=== PATIENT | female | born 1995 | race Caucasian/White ===

== ENCOUNTER 2017-11-18 17:19 | Emergency (ER) | payer SELFPAY ==
[2017-11-18 17:48] VITALS: O2SAT 94
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
[2017-11-18 22:38] VITALS: BP 108/78; TEMP 98.5
== END 2017-11-18 22:25 ==
LOC: ER 17:19
DX: R45.851 Suicidal ideations (principal); F32.9 Major depressive disorder, single episode, unspecified; J45.909 Unspecified asthma, uncomplicated; K21.9 Gastro-esophageal reflux disease without esophagitis

== ENCOUNTER 2017-11-25 19:26 | Emergency (ER) | payer SELFPAY ==
--- NOTE | 2017-11-25 19:51 | ED.PDOC ---
History of Present Illness - General Chief Complaint: Abdominal Pain Stated Complaint: abd pain Time Seen by Provider: 11/25/17 19:46 Source: patient Exam Limitations: no limitations Additional Information: 22 YEAR OLD COMPLAINTS OF LOWER ABDOMINAL PAIN NON RADIATING NO ASSOCIATED FEVER CHILLS NO NAUSEA VOMITING OR DIARRHEA NO FREQUENCY OF URINATION NO DYSURIA HAS HAD C SECTION 3 MONTHS AGO THE INCISION HAS HEALED WELL - History of Present Illness Timing/Duration: 24 hours Severity: moderate Improving Factors: nothing Worsening Factors: nothing Associated Symptoms: denies symptoms Allergies/Adverse Reactions: Allergies Iodine Allergy (Verified 11/18/17 17:50) Home Medications: Ambulatory Orders Sertraline HCl 100 mg PO DAILY 12/20/13 Vit W/ Iron Carbonyl- [Vol-Tab Rx] 1 tab PO DAILY 01/27/14 Cephalexin 500 mg PO QID 03/16/14 Norethindrone (Contraceptive) [Juany] 0.35 mg PO DAILY 03/16/14 Pantoprazole Sodium 40 mg PO DAILY 03/16/14 Review of Systems - Review of Systems Constitutional: States: no symptoms reported EENTM: States: no symptoms reported Respiratory: States: no symptoms reported Cardiology: States: no symptoms reported Gastrointestinal/Abdominal: States: see HPI Genitourinary: States: no symptoms reported Skin: States: no symptoms reported Neurological: States: no symptoms reported Endocrine: States: no symptoms reported Hematologic/Lymphatic: States: no symptoms reported Past Medical History (General) - Patient Medical History Hx Seizures: No Hx Stroke: No Hx Dementia: No Hx Asthma: Yes Hx of COPD: No Hx Cardiac Disorders: No Hx Congestive Heart Failure: No Hx Pacemaker: No Hx Hypertension: No Hx Thyroid Disease: No Hx Diabetes: No Hx Gastroesophageal Reflux: No Hx Renal Disease: No Hx Cancer: No Hx of HIV: No Hx Hepatitis C: No Hx MRSA: No Surgical History: other - Vaccination History Hx Tetanus, Diphtheria Vaccination: Yes Hx Influenza Vaccination: Yes Hx Pneumococcal Vaccination: No - Social History Hx Tobacco Use: Yes Hx Chewing Tobacco Use: No Hx Alcohol Use: No Hx Substance Use: No Hx Substance Use Treatment: No Hx Depression: Yes Hx Physical Abuse: No Hx Emotional Abuse: No Hx Suspected Abuse: No - Female History Patient is a Female of Child Bearing Age (10 -59 yrs old): Yes Hx Last Menstrual Period: 11/01/17 Patient : No Expected Date of Delivery:: 02/10/14 - Triage Comment ED Triage Comment: pt had c/s 3.5months ago Family Medical History - Family History Maternal Family History: Unknown Father Name: Guevara Mcginnis Age (years): 76 Living Status: Still Living Hx Family Hypertension: Yes Hx Cardiac Disease: Yes - [place] Hx Family;Other: isi cholesterol, arthritis, osteoporosis, alzheimers Brother Age (years): 50's Living Status: Still Living Hx Cardiac Disease: Yes Hx Family;Other: open heart surgery Mother Name: Georgiana Age (years): 40s Living Status: Still Living Hx Family Hypertension: Yes Hx Family Diabetes: Yes Hx Family;Other: scoliosis Sister Name: Christine Holley Living Status: Still Living Hx Family Cancer: Yes Physical Exam - Physical Exam General Appearance: Alert, Comfortable Eye Exam: bilateral normal Ears, Nose, Throat: hearing grossly normal, normal ENT inspection, normal pharynx, abnormal TM (R) Neck: non-tender, full range of motion, supple Respiratory: chest non-tender, lungs clear, normal breath sounds, no respiratory distress, no accessory muscle use Cardiovascular/Chest: normal peripheral pulses, regular rate, rhythm, no edema, no gallop, no JVD Gastrointestinal/Abdominal: normal bowel sounds, soft, no organomegaly, no pulsatile mass, tenderness Back Exam: normal inspection, no CVA tenderness Extremity: normal range of motion, non-tender, normal inspection Progress - Results/Orders Results/Orders: Laboratory Tests 11/25/17 11/25/17 11/25/17 19:45 20:07 20:07 WBC 7.4 RBC 4.14 L Hgb 11.7 L Hct 34.6 L MCV 83.7 MCH 28.2 MCHC 33.8 RDW 14.4 Plt Count 292 MPV 7.7 Absolute Neuts (auto) 4.10 Absolute Lymphs (auto) 2.70 Absolute Monos (auto) 0.40 Absolute Eos (auto) 0.10 Absolute Basos (auto) 0.10 Neutrophils % 55.3 Lymphocytes % 36.7 Monocytes % 5.7 Eosinophils % 1.3 Basophils % 1.0 Sodium 140 Potassium 3.5 L Chloride 109 Carbon Dioxide 25 Anion Gap 9.5 L BUN 13 Creatinine 0.64 BUN/Creatinine Ratio 20.3 H Random Glucose 120 H Serum Osmolality 280.7 Calcium 9.1 Serum HCG, Qual Urine Color Yellow Urine Appearance Clear Urine pH 6.0 Ur Specific [place] >= 1.030 Urine Protein Negative Urine Glucose (UA) Negative Urine Ketones Negative Urine Blood Negative Urine Nitrite Negative Urine Bilirubin Negative Urine Urobilinogen 0.2 Ur Leukocyte Esterase Negative Urine RBC 0 Urine WBC 3-5 H Ur Epithelial Cells 1-3 Urine Bacteria Rare Urine Mucus Small 11/25/17 20:11 WBC RBC Hgb Hct MCV MCH MCHC RDW Plt Count MPV Absolute Neuts (auto) Absolute Lymphs (auto) Absolute Monos (auto) Absolute Eos (auto) Absolute Basos (auto) Neutrophils % Lymphocytes % Monocytes % Eosinophils % Basophils % Sodium Potassium Chloride Carbon Dioxide Anion Gap BUN Creatinine BUN/Creatinine Ratio Random Glucose Serum Osmolality Calcium Serum HCG, Qual Negative Urine Color Urine Appearance Urine pH Ur Specific [place] Urine Protein Urine Glucose (UA) Urine Ketones Urine Blood Urine Nitrite Urine Bilirubin Urine Urobilinogen Ur Leukocyte Esterase Urine RBC Urine WBC Ur Epithelial Cells Urine Bacteria Urine Mucus Departure - Departure Clinical Impression: Abdominal pain, Constipation Time of Disposition: 20:48 Disposition: Discharge to Home or Self Care Condition: Good Departure Forms: ED Discharge - Pt. Copy, Patient Portal Self Enrollment Instructions: DI for Abdominal Pain-Adult Diet: resume usual diet Home Medications: Ambulatory Orders Sertraline HCl 100 mg PO DAILY 12/20/13 Vit W/ Iron Carbonyl- [Vol-Tab Rx] 1 tab PO DAILY 01/27/14 Cephalexin 500 mg PO QID 03/16/14 Norethindrone (Contraceptive) [Juany] 0.35 mg PO DAILY 03/16/14 Pantoprazole Sodium 40 mg PO DAILY 03/16/14
--- NOTE | 2017-11-25 20:34 | RAD ---
EXAM DESCRIPTION: KUB CLINICAL HISTORY: lower abd pain COMPARISON: None. FINDINGS: Single supine view of the abdomen was submitted. There is no evidence of bowel obstruction. There is no abnormal calcification within the abdomen. There is no acute osseous process visualized. Moderate stool is in the colon. IMPRESSION: Moderate stool. Electronically signed by: Dano Peñaloza 11/25/2017 8:33 PM CDT
[2017-11-25] MEDS ORDERED: SODIUM PHOS/BIPHOS ENEMA ADULT 133 ML BTTL PR ONE (20:50)
[2017-11-25 21:18] VITALS: BP 100/65; TEMP 98.2; O2SAT 100
== END 2017-11-25 21:17 | disposition home or self-care (01) ==
LOC: ER 19:26
DX: K59.00 Constipation, unspecified (principal); R10.30 Lower abdominal pain, unspecified; J45.909 Unspecified asthma, uncomplicated; Z87.891 Personal history of nicotine dependence; Z91.041 Radiographic dye allergy status

== ENCOUNTER 2017-12-05 17:56 | Emergency (ER) | payer SELFPAY ==
[2017-12-05] MEDS ORDERED: LIDOCAINE HCL 2% (MOUTH-THROAT) 15 ML UD ONE (18:09)
[2017-12-05] MEDS ORDERED: ALUM & MAG HYDROX-SIMETHICONE 30 ML UD ONE (18:10)
[2017-12-05 18:13] VITALS: TEMP 98.3
[2017-12-05] MEDS: ALUM & MAG HYDROX-SIMETHICONE 30 ML, LIDOCAINE VISCOUS 2% 15 ML PO ONE ×2 (18:17)
--- NOTE | 2017-12-05 18:57 | RAD ---
EXAM DESCRIPTION: Chest,1 View CLINICAL HISTORY: 22 years Female acute chest pain COMPARISON: None. FINDINGS: The cardiomediastinal silhouette appears unremarkable. No consolidating infiltrates or pleural effusions. No pneumothorax. IMPRESSION: No acute abnormality is identified. Electronically signed by: Edwar Galvin MD 12/05/2017 6:55 PM CDT
[2017-12-05 19:45] VITALS: O2SAT 100
[2017-12-05] MEDS: CIPROFLOXACIN 500 MG TAB PO ONE (19:55)
[2017-12-05] MEDS: cefTRIAXone SODIUM 1 GM in SODIUM CHL 0.9% 50ML MIN-BAG+ 50 ML IVPB ONE (19:58)
[2017-12-05] MEDS: cefTRIAXone SODIUM 1 GM VIAL IM ONE (20:02)
--- NOTE | 2017-12-05 21:56 | ED.PDOC ---
History of Present Illness - General Chief Complaint: Chest Pain/NM Stated Complaint: chest pain Time Seen by Provider: 12/05/17 17:59 Source: patient Exam Limitations: no limitations - History of Present Illness Initial Comments: the patient is a 22-year-old female presenting to the emergency room secondary to chest pain that started acutely just as she was finishing her pot pie for supper. The patient has no cardiac history. No history of any DVTs. Pain is deep and substernal and burning. No pain with taking a deep breath. No shortness of breath. No palpitations. The pain did go away very soon after GI cocktail. She did present here within 15 minutes of the chest pain starting. She rates it as a 9 out of 10 initially. no nausea or vomiting. No history of reflux issues. No leg pain or swelling. Timing/Duration: 1/2 hour Severity: moderate Improving Factors: nothing Worsening Factors: nothing Associated Symptoms: chest pain Allergies/Adverse Reactions: Allergies Iodine Allergy (Verified 11/18/17 17:50) Home Medications: Ambulatory Orders Sertraline HCl 100 mg PO DAILY 12/20/13 Vit W/ Iron Carbonyl- [Vol-Tab Rx] 1 tab PO DAILY 01/27/14 Cephalexin 500 mg PO QID 03/16/14 Norethindrone (Contraceptive) [Juany] 0.35 mg PO DAILY 03/16/14 Pantoprazole Sodium 40 mg PO DAILY 03/16/14 Ciprofloxacin [Cipro] 500 mg PO BID #14 tab 12/05/17 Famotidine 20 mg PO BID #30 tab 12/05/17 Review of Systems - Review of Systems Constitutional: States: no symptoms reported EENTM: States: no symptoms reported Respiratory: States: no symptoms reported Cardiology: States: chest pain Gastrointestinal/Abdominal: States: no symptoms reported Genitourinary: States: no symptoms reported Musculoskeletal: States: no symptoms reported Skin: States: no symptoms reported Neurological: States: no symptoms reported Endocrine: States: no symptoms reported All other Systems: No Change from Baseline Past Medical History (General) - Patient Medical History Hx Seizures: No Hx Stroke: No Hx Dementia: No Hx Asthma: Yes Hx of COPD: No Hx Cardiac Disorders: No Hx Congestive Heart Failure: No Hx Pacemaker: No Hx Hypertension: No Hx Thyroid Disease: No Hx Diabetes: No Hx Gastroesophageal Reflux: No Hx Renal Disease: No Hx Cancer: No Hx of HIV: No Hx Hepatitis C: No Hx MRSA: No Surgical History: other - Vaccination History Hx Tetanus, Diphtheria Vaccination: Yes Hx Influenza Vaccination: Yes Hx Pneumococcal Vaccination: No - Social History Hx Tobacco Use: Yes Hx Chewing Tobacco Use: No Hx Alcohol Use: No Hx Substance Use: No Hx Substance Use Treatment: No Hx Depression: Yes Hx Physical Abuse: No Hx Emotional Abuse: No Hx Suspected Abuse: No - Female History Hx Last Menstrual Period: 11/01/17 Patient : No Expected Date of Delivery:: 02/10/14 Family Medical History - Family History Maternal Family History: Unknown Father Name: Guevara Mcginnis Age (years): 76 Living Status: Still Living Hx Family Hypertension: Yes Hx Cardiac Disease: Yes - [place] Hx Family;Other: isi cholesterol, arthritis, osteoporosis, alzheimers Brother Age (years): 50's Living Status: Still Living Hx Cardiac Disease: Yes Hx Family;Other: open heart surgery Mother Name: Georgiana Age (years): 40s Living Status: Still Living Hx Family Hypertension: Yes Hx Family Diabetes: Yes Hx Family;Other: scoliosis Sister Name: Christine Holley Living Status: Still Living Hx Family Cancer: Yes Physical Exam - Physical Exam General Appearance: Alert, Anxious, No apparent distress Eye Exam: bilateral normal Ears, Nose, Throat: hearing grossly normal, normal ENT inspection, normal pharynx Neck: full range of motion, supple Respiratory: lungs clear, normal breath sounds, no respiratory distress, no accessory muscle use, other - she does have mild bilateral parasternal chest wall discomfort to palpation but she states that this is different than the pain she is talking about Cardiovascular/Chest: normal peripheral pulses, regular rate, rhythm, no edema Peripheral Pulses: radial,right: 2+, radial,left: 2+, dorsalis pedis,right: 2+, dorsalis pedis,left: 2+ Gastrointestinal/Abdominal: non tender, soft Rectal Exam: deferred Back Exam: normal inspection, no CVA tenderness, no vertebral tenderness Extremity: normal range of motion, non-tender, normal inspection, no pedal edema , normal capillary refill 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 The most likely source of this is esophageal irritation from probably a hard food that she swallowed. Symptoms were relieved with a GI cocktail. The patient has had a couple of sets of cardiac enzymes that are negative and based on clinical exam and lab work she is low probability for DVT or pulmonary embolus or coronary artery disease. The patient is going to be placed on Pepcid twice daily for the next 2 weeks. She can additionally use Maalox as needed. She needs to take small bites and chew them well before swallowing. She needs to avoid hard or sharp foods for the next week or so. ER warnings are given for any significant worsening. EKG chest x-ray and lab work were reassuring. she does have a significant urinary tract infection and will be placed on ciprofloxacin for this at this time. She is to take this medication with food. She needs to follow up with her primary care doctor later this week for a urine culture results. Keep well hydrated. - Results/Orders Results/Orders: chest x-ray fails to show any acute pathology. EKG shows normal sinus rhythm at a rate of 77 bpm. Normal axis. Normal R-wave progression. No acute ST segment changes concerning for ischemia. Normal QT corrected interval. 12/05/17 18:07 Telemetry .CONTINUOUS 12/05/17 18:15 EKG STAT 12/05/17 18:27 URINE CULTURE W/COLONY COUNT Stat Laboratory Results - last 24 hr 12/05/17 12/05/17 12/05/17 18:07 18:08 18:08 WBC 5.9 RBC 4.12 L Hgb 11.6 L Hct 34.4 L MCV 83.6 MCH 28.1 MCHC 33.5 RDW 14.4 Plt Count 326 MPV 7.5 Absolute Neuts (auto) 3.30 Absolute Lymphs (auto) 2.20 Absolute Monos (auto) 0.30 Absolute Eos (auto) 0.10 Absolute Basos (auto) 0.10 Neutrophils % 54.9 Lymphocytes % 37.3 Monocytes % 5.6 Eosinophils % 1.3 Basophils % 0.9 PT 11.7 INR 1.010 PTT (SP) 31.0 D-Dimer, Quantitative 293 H* Sodium 140 Potassium 3.5 L Chloride 108 Carbon Dioxide 25 Anion Gap 10.5 L BUN 10 Creatinine 0.57 L BUN/Creatinine Ratio 17.5 Random Glucose 110 H Serum Osmolality 279.1 Calcium 9.1 Total Bilirubin 0.3 AST 20 ALT 18 Alkaline Phosphatase 76 Creatine Kinase 99 CK-MB (CK-2) 1.1 CK-MB (CK-2) % Not Reportable Troponin I < 0.02 B-Natriuretic Peptide 16.7 Serum Total Protein 7.1 Albumin 3.9 Globulin 3.2 Albumin/Globulin Ratio 1.2 Urine Color Urine Appearance Urine pH Ur Specific [place] Urine Protein Urine Glucose (UA) Urine Ketones Urine Blood Urine Nitrite Urine Bilirubin Urine Urobilinogen Ur Leukocyte Esterase Urine RBC Urine WBC Ur Epithelial Cells Urine Bacteria Urine Mucus Urine HCG, Qual 12/05/17 12/05/17 12/05/17 18:08 18:27 21:33 WBC RBC Hgb Hct MCV MCH MCHC RDW Plt Count MPV Absolute Neuts (auto) Absolute Lymphs (auto) Absolute Monos (auto) Absolute Eos (auto) Absolute Basos (auto) Neutrophils % Lymphocytes % Monocytes % Eosinophils % Basophils % PT INR PTT (SP) D-Dimer, Quantitative Sodium Potassium Chloride Carbon Dioxide Anion Gap BUN Creatinine BUN/Creatinine Ratio Random Glucose Serum Osmolality Calcium Total Bilirubin AST ALT Alkaline Phosphatase Creatine Kinase 97 CK-MB (CK-2) 0.5 CK-MB (CK-2) % Not Reportable Troponin I < 0.02 B-Natriuretic Peptide Serum Total Protein Albumin Globulin Albumin/Globulin Ratio Urine Color Yellow Urine Appearance Sl cloudy Urine pH 6.5 Ur Specific [place] >= 1.030 Urine Protein Negative Urine Glucose (UA) Negative Urine Ketones Negative Urine Blood Negative Urine Nitrite Negative Urine Bilirubin Negative Urine Urobilinogen 0.2 Ur Leukocyte Esterase Trace H Urine RBC 1-3 Urine WBC Tntc H Ur Epithelial Cells 5-10 Urine Bacteria 2+ H Urine Mucus Moderate Urine HCG, Qual Negative Departure - Departure Clinical Impression: Atypical chest pain, Cystitis Disposition: Discharge to Home or Self Care Condition: Fair Departure Forms: ED Discharge - Pt. Copy, Patient Portal Self Enrollment Diet: bland diet Activity: increase activity as tolerated Prescriptions: Ciprofloxacin [Cipro] 500 mg PO BID #14 tab Famotidine 20 mg PO BID #30 tab Home Medications: Ambulatory Orders Sertraline HCl 100 mg PO DAILY 12/20/13 Vit W/ Iron Carbonyl- [Vol-Tab Rx] 1 tab PO DAILY 01/27/14 Cephalexin 500 mg PO QID 03/16/14 Norethindrone (Contraceptive) [Juany] 0.35 mg PO DAILY 03/16/14 Pantoprazole Sodium 40 mg PO DAILY 03/16/14 Ciprofloxacin [Cipro] 500 mg PO BID #14 tab 12/05/17 Famotidine 20 mg PO BID #30 tab 12/05/17 Additional Instructions: the patient is a 27-year-old male presenting to the emergency room secondary to a piece of glass getting stuck in the heel of his left foot. Glass was removed under direct visualization. The wound was irrigated copiously with saline and Betadine. The wound was covered with antibiotic ointment and a Band-Aid. He needs to wash the wound 2-3 times a day with an antibacterial soap such as Dial and cover it with a Band-Aid and antibacterial ointment. He is to use crutches and be nonweightbearing for the next week. due to the nature of the wound, no eduard, sutures or Steri-Strips are being used. he needs to not put on a shoe for at least 4 days. He is going to be placed on 14 days of Bactrim and ciprofloxacin as this wound has a high likelihood of developing an infection. He received the first doses of those here along with a dose of Rocephin and a tetanus shot. ER warnings were given for any evidence of infection. I would like him to have the wound looked at by his primary care doctor in 7 or 8 days before resuming his regular duties.
[2017-12-05 22:24] VITALS: BP 138/66
== END 2017-12-05 22:24 | disposition home or self-care (01) ==
LOC: ER 17:56
DX: R07.89 Other chest pain (principal); N30.00 Acute cystitis without hematuria; J45.909 Unspecified asthma, uncomplicated; Z87.891 Personal history of nicotine dependence; Z82.49 Family history of ischemic heart disease and other diseases of the circulatory system
CPT/HCPCS: 71045; 80053; 81001; 81025; 82550; 82553; 83880; 84484; 85025; 85379; 85610; 85730; 87086; 87088; 87186; 93005; J0696

== ENCOUNTER 2018-01-29 23:13 | Emergency (ER) | payer SELFPAY ==
--- NOTE | 2018-01-29 23:55 | ED.PDOC ---
History of Present Illness - General Chief Complaint: Upper Extremity Injury Stated Complaint: LEFT ARM NUMBNESS, TINGLING AND PAIN Time Seen by Provider: 01/29/18 23:31 Source: patient Exam Limitations: no limitations - History of Present Illness Initial Comments: the patient a 22-year-old female presenting to the emergency room secondary to a feeling of tingling to her radial aspect of her forearm extending from just above the elbow down to just above the wrist. There is no weakness. There is no loss of sensation. There are no muscle fasciculations. There is no known trauma however she does have some mild proximal discomfort palpation over that area. No bruising is noted. She does not have any known neuropathies or vitamin deficiencies. No recent shoulder elbow injuries. No other areas of paresthesias. No neck pain. Timing/Duration: 1-3 hours Severity: mild Improving Factors: nothing Worsening Factors: nothing Associated Symptoms: denies symptoms Allergies/Adverse Reactions: Allergies Iodine Allergy (Verified 01/29/18 23:21) Home Medications: Ambulatory Orders NK [NK] 01/29/18 Review of Systems - Review of Systems Constitutional: States: no symptoms reported EENTM: States: no symptoms reported Respiratory: States: no symptoms reported Cardiology: States: no symptoms reported Gastrointestinal/Abdominal: States: no symptoms reported Genitourinary: States: no symptoms reported Musculoskeletal: States: no symptoms reported Skin: States: no symptoms reported Neurological: States: see HPI, anxiety Endocrine: States: no symptoms reported All other Systems: No Change from Baseline Past Medical History (General) - Patient Medical History Hx Seizures: No Hx Stroke: No Hx Dementia: No Hx Asthma: Yes Hx of COPD: No Hx Cardiac Disorders: No Hx Congestive Heart Failure: No Hx Pacemaker: No Hx Hypertension: No Hx Thyroid Disease: No Hx Diabetes: No Hx Gastroesophageal Reflux: No Hx Renal Disease: No Hx Cancer: No Hx of HIV: No Hx Hepatitis C: No Hx MRSA: No - Vaccination History Hx Tetanus, Diphtheria Vaccination: No Hx Influenza Vaccination: No Hx Pneumococcal Vaccination: No Immunizations Up to Date: No - Social History Hx Tobacco Use: Yes Hx Chewing Tobacco Use: No Hx Alcohol Use: Yes Hx Substance Use: No Hx Substance Use Treatment: No Hx Depression: No Hx Physical Abuse: No Hx Emotional Abuse: No Hx Suspected Abuse: No - Female History Hx Last Menstrual Period: 05/28/18 Patient : No Expected Date of Delivery:: 02/10/14 Family Medical History - Family History Maternal Family History: Unknown Father Name: Guevara Mcginnis Age (years): 76 Living Status: Still Living Hx Family Hypertension: Yes Hx Cardiac Disease: Yes - [place] Hx Family;Other: isi cholesterol, arthritis, osteoporosis, alzheimers Brother Age (years): 50's Living Status: Still Living Hx Cardiac Disease: Yes Hx Family;Other: open heart surgery Mother Name: Georgiana Age (years): 40s Living Status: Still Living Hx Family Hypertension: Yes Hx Family Diabetes: Yes Hx Family;Other: scoliosis Sister Name: Christine Holley Living Status: Still Living Hx Family Cancer: Yes Physical Exam - Physical Exam General Appearance: Alert, Comfortable, No apparent distress Eye Exam: bilateral normal Ears, Nose, Throat: hearing grossly normal, normal ENT inspection Neck: full range of motion, supple Respiratory: lungs clear, normal breath sounds, no respiratory distress, no accessory muscle use Cardiovascular/Chest: normal peripheral pulses, regular rate, rhythm, no edema Peripheral Pulses: radial,right: 2+, radial,left: 2+, dorsalis pedis,right: 2+, dorsalis pedis,left: 2+ Gastrointestinal/Abdominal: non tender, soft Rectal Exam: deferred Back Exam: normal inspection, no CVA tenderness Extremity: non-tender, normal inspection, no pedal edema, no calf tenderness, normal capillary refill 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, alert, normal mood/affect, oriented x 3, other - see history of present illness DTR: 2+: Biceps, left, Biceps, right, Brachioradialis, left, Brachioradialis, right Comments: Vital Signs - 24 hr 01/29/18 23:22 Temperature 98.3 F Pulse Rate [ 91 H MONITOR] Respiratory 20 Rate Blood Pressure 126/78 [LA] O2 Sat by Pulse 98 Oximetry Progress - Progress Progress: 01/29/18 23:55 the patient's 22-year-old female presenting with what appears to be an isolated paresthesia in the distribution of the lateral cutaneous nerve of the forearm with mild proximal tenderness to palpation just above the elbow, of the left arm. This is most likely a traumatic irritation of the nerve. She can take an anti-inflammatory such as ibuprofen as she wishes with food prevent stomach upset. She may have symptoms for the next week. If symptoms are progressive or she is developing symptoms in other parts of body then additional evaluation may be warranted. For now I would like her to take a vitamin B complex daily for the next month. ER warnings were given. She needs to keep follow-up with her primary care doctor next week for reevaluation. There are no other neurological significant findings at this time. - EKG/XRAY/CT CT Ordered: No CT Interpretation Call Back: No Departure - Departure Clinical Impression: Paresthesia of arm Disposition: Discharge to Home or Self Care Condition: Fair Departure Forms: ED Discharge - Pt. Copy, Patient Portal Self Enrollment Diet: regular diet Activity: increase activity as tolerated Home Medications: Ambulatory Orders NK [NK] 01/29/18 Additional Instructions: the patient's 22-year-old female presenting with what appears to be an isolated paresthesia in the distribution of the lateral cutaneous nerve of the forearm with mild proximal tenderness to palpation just above the elbow, of the left arm. This is most likely a traumatic irritation of the nerve. She can take an anti-inflammatory such as ibuprofen as she wishes with food prevent stomach upset. She may have symptoms for the next week. If symptoms are progressive or she is developing symptoms in other parts of body then additional evaluation may be warranted. For now I would like her to take a vitamin B complex daily for the next month. ER warnings were given. She needs to keep follow-up with her primary care doctor next week for reevaluation. There are no other neurological significant findings at this time.
[2018-01-29 23:59] VITALS: BP 126/78; TEMP 98.3; O2SAT 98
== END 2018-01-30 00:07 | disposition home or self-care (01) ==
LOC: ER 23:13
DX: R20.2 Paresthesia of skin (principal); J45.909 Unspecified asthma, uncomplicated; Z87.891 Personal history of nicotine dependence; Z91.041 Radiographic dye allergy status

== ENCOUNTER 2018-02-09 17:02 | Emergency (ER) | payer SELFPAY ==
--- NOTE | 2018-02-09 18:51 | ED.PDOC ---
History of Present Illness - General Source: patient Exam Limitations: no limitations - History of Present Illness Initial Comments: PT REPORTS A ONE WEEK HISTORY OF VAGINAL IRRITATION AND VAGINAL DISCHARGE THAT IS DESCRIBED MILKY WHITE AND ASSOCIATED WITH A FOUL ODOR. PT REPORTS BEING DIAGNOSED WITH A UTI IN DECEMBER THAT WAS NOT TREATED SINCE SHE COULD NOT AFFORD ABX. PT STATES THAT SYMPTOMS IMPROVED BUT HAVE SINCE RETURNED. PT DENIES, FEVER, CHILLS, ABDOMINAL PAIN, BACK PAIN, N/V. Timing/Duration: week Sexual intercourse history: single partner Improving Factors: nothing Worsening Factors: nothing Associated Symptoms: denies symptoms <Shy Gomez - Last Filed: 02/09/18 19:00> <Isaias Espino - Last Filed: 02/09/18 19:28> - General Chief Complaint: Problem Stated Complaint: VAGINAL DISCHARGE Time Seen by Provider: 02/09/18 17:24 - History of Present Illness Allergies/Adverse Reactions: Allergies Iodine Allergy (Verified 01/29/18 23:21) Home Medications: Ambulatory Orders metroNIDAZOLE [Flagyl] 500 mg PO Q12H 7 Days #14 tab 02/09/18 Review of Systems - Review of Systems Constitutional: Denies: chills, fever EENTM: Denies: nose congestion, throat pain Gastrointestinal/Abdominal: Denies: abdominal pain, nausea, vomiting Genitourinary: States: see HPI, discharge. Denies: dysuria, frequency Musculoskeletal: Denies: joint pain, joint swelling <Shy Gomez Allegra - Last Filed: 02/09/18 19:00> Past Medical History (General) - Patient Medical History Hx Seizures: No Hx Stroke: No Hx Dementia: No Hx Asthma: Yes Hx of COPD: No Hx Cardiac Disorders: No Hx Congestive Heart Failure: No Hx Pacemaker: No Hx Hypertension: No Hx Thyroid Disease: No Hx Diabetes: No Hx Gastroesophageal Reflux: No Hx Renal Disease: No Hx Cancer: No Hx of HIV: No Hx Hepatitis C: No Hx MRSA: No Surgical History: other - Vaccination History Hx Tetanus, Diphtheria Vaccination: No Hx Influenza Vaccination: Yes - 2017 Hx Pneumococcal Vaccination: No - Social History Hx Tobacco Use: Yes Hx Chewing Tobacco Use: No Hx Alcohol Use: Yes Hx Substance Use: No Hx Substance Use Treatment: No Hx Depression: No Hx Physical Abuse: No Hx Emotional Abuse: No Hx Suspected Abuse: No - Female History Patient is a Female of Child Bearing Age (10 -59 yrs old): Yes Hx Last Menstrual Period: 11/01/17 Patient : No Expected Date of Delivery:: 02/10/14 <Shy Gomez - Last Filed: 02/09/18 19:00> Family Medical History - Family History Maternal Family History: Unknown Father Name: Guevara Mcginnis Age (years): 76 Living Status: Still Living Hx Family Hypertension: Yes Hx Cardiac Disease: Yes - [place] Hx Family;Other: isi cholesterol, arthritis, osteoporosis, alzheimers Brother Age (years): 50's Living Status: Still Living Hx Cardiac Disease: Yes Hx Family;Other: open heart surgery Mother Name: Georgiana Age (years): 40s Living Status: Still Living Hx Family Hypertension: Yes Hx Family Diabetes: Yes Hx Family;Other: scoliosis Sister Name: Christine Holley Living Status: Still Living Hx Family Cancer: Yes <Shy Gomez - Last Filed: 02/09/18 19:00> Physical Exam - Physical Exam General Appearance: Alert, Comfortable, No apparent distress, Well Developed, Well Groomed, Well Hydrated Eyes, Ears, Nose, Throat Exam: normal ENT inspection, TMs normal Cardiovascular/Respiratory: no respiratory distress Gastrointestinal/Abdominal: non tender, soft Pelvic Exam: external exam normal, speculum exam normal, no cerv. motion tender , blood - SMALL AMMOUNT OF CERVICAL BLEEDING, discharge - SCANT WHITE DISCHARGE Back Exam: normal inspection, no CVA tenderness Neurologic: alert, normal mood/affect, oriented x 3 Skin Exam: normal color, warm/dry <Shy Gomez - Last Filed: 02/09/18 19:00> Progress - Progress Progress: 02/09/18 19:28 pt with bacterial vaginosis. follow up with pcp or corporate logistics manager in coming weeks for reeval. er warnings for any worsening. ua clear. - Results/Orders Results/Orders: Laboratory Tests 02/09/18 02/09/18 17:37 18:26 Urine Color Yellow Urine Appearance Clear Urine pH 6.0 Ur Specific [place] >= 1.030 Urine Protein Negative Urine Glucose (UA) Negative Urine Ketones Negative Urine Blood Trace-intact H Urine Nitrite Negative Urine Bilirubin Negative Urine Urobilinogen 0.2 Ur Leukocyte Esterase Trace H Urine RBC 1-3 Urine WBC 1-3 Ur Epithelial Cells 3-5 Urine Bacteria Rare Urine Mucus Small Urine HCG, Qual Negative <Isaias Espino - Last Filed: 02/09/18 19:28> Departure <Shy Gomez - Last Filed: 02/09/18 19:00> <Isaias Espino - Last Filed: 02/09/18 19:28> - Departure Clinical Impression: Bacterial vaginosis Disposition: Discharge to Home or Self Care Condition: Good Departure Forms: ED Discharge - Pt. Copy, Patient Portal Self Enrollment Instructions: Bacterial Vaginosis (DC) Referrals: [facility] [Provider Group] - 1-2 Weeks Prescriptions: metroNIDAZOLE [Flagyl] 500 mg PO Q12H 7 Days #14 tab Home Medications: Ambulatory Orders metroNIDAZOLE [Flagyl] 500 mg PO Q12H 7 Days #14 tab 02/09/18
[2018-02-09 19:19] VITALS: BP 122/79; TEMP 98.4; O2SAT 99
== END 2018-02-09 19:20 | disposition home or self-care (01) ==
LOC: ER 17:02
DX: N76.0 Acute vaginitis (principal); J45.909 Unspecified asthma, uncomplicated; Z87.891 Personal history of nicotine dependence; Z91.041 Radiographic dye allergy status